=== PATIENT | female | born 1950 | race Caucasian/White ===

== ENCOUNTER → 2017-07-28 08:12 | Outpatient (CLI) | payer OTHER, SELFPAY ==
--- NOTE | 2017-07-28 08:17 | DI.CT.S_ITS ---
PROCEDURE: CT ABDOMEN PELVIS W CON INDICATIONS: 66 year-old female with pelvic pain and hematuria. TECHNIQUE: After the administration of oral and intravenous contrast, 5 mm thick sections acquired from the diaphragms to the symphysis. 5 mm thick coronal and sagittal reformats were performed. For radiation dose reduction, the following was used: automated exposure control, adjustment of mA and/or kV according to patient size. COMPARISON: [facility], CT, ABDOMEN/PELVIS WITH CONTRAST, 09/06/2015, 13:41. FINDINGS: Image quality: Excellent. ABDOMEN: Lung bases: Lung bases are clear. Heart size is normal. Solid organs: Liver is normal in size and enhancement. Gallbladder wall thickness is normal. Biliary system is non-dilated. Pancreas enhances normally. Spleen is normal in size and enhancement. No adrenal nodules. Kidneys are normal in size and enhancement, without hydronephrosis. 1.2 cm inferior left renal cortical simple cyst is again noted. Peritoneum and bowel: Stomach, small bowel, and colon loops are normal in caliber and wall thickness. There is mild sigmoid colon diverticulosis. No free fluid or air. Nodes and vessels: No retroperitoneal or mesenteric adenopathy. Aorta and inferior vena cava are normal in caliber, with mild aortic atherosclerosis. Miscellaneous: No ventral hernias. PELVIS: Genitourinary: Bladder wall thickness is normal. Uterus and ovaries are normal in size. Miscellaneous: No inguinal hernias or adenopathy. Bones: No suspicious bony lesions. No vertebral body compression fractures. There is mild lumbar spine levoscoliosis. There is grade one L4-L5 spondylolisthesis from facet joint degeneration, as well as grade 1 L5-S1 spondylolisthesis from bilateral L5 pars defects. IMPRESSION: 1. No imaging explanation for pelvic pain. If there is persistent clinical concern for small kidney stones, consider noncontrast CT KUB for more sensitive evaluation. 2. Grade one L4-L5 spondylolisthesis from facet joint degeneration as before, as well as grade 1 L5-S1 spondylolisthesis from L5 pars defects. 3. Mild sigmoid colon diverticulosis. 4. An incidental 1.2 cm inferior left renal cortical simple cyst. Dictated by: Danilo Yu M.D. on 07/28/2017 at 10:18 Approved by: Danilo Yu M.D. on 07/28/2017 at 12:14
[2017-07-28 08:50] LABS: BUN Creatinine Ratio 17.8 (6-22); Estimated Glomerular Filt Rate > 60.0 mL/min (>60)
== END ==
PROVIDERS: Visit Provider Family Medicine
DX: R10.2 Pelvic and perineal pain (principal); R31.9 Hematuria, unspecified; K57.90 Diverticulosis of intestine, part unspecified, without perforation or abscess without bleeding; M43.16 Spondylolisthesis, lumbar region; M47.816 Spondylosis without myelopathy or radiculopathy, lumbar region; M43.17 Spondylolisthesis, lumbosacral region; N28.1 Cyst of kidney, acquired
CPT/HCPCS: 36415; 74177; 82565; 84520; Q9967

== ENCOUNTER → 2024-01-18 09:07 | Outpatient (CLI) | payer MEDICARE, OTHER, SELFPAY ==
--- NOTE | 2024-01-18 09:09 | DI.US.S_ITS ---
PROCEDURE: US PARACENTESIS INDICATIONS: ASCITIES TECHNIQUE: The indications, alternatives, benefits, risks, and complications of the procedure were explained to the patient. Written informed consent was obtained and placed in the chart. The abdomen and pelvis were examined sonographically, and an appropriate site was chosen for paracentesis. The skin was prepared and draped in the usual sterile fashion, and 1% lidocaine was infiltrated from the skin down through the peritoneal surface. A 19-gauge catheter-covered needle was then introduced into the peritoneal space, the catheter was advanced and the needle was withdrawn, and thereafter peritoneal fluid was withdrawn. The catheter was then removed and a dressing was applied. The fluid was discarded if the clinician did not order diagnostic testing of the fluid. COMPARISON: None. FINDINGS: Access site: Left lower quadrant Needle: One-Step centesis catheter with introducer needle. Fluid volume and description: 3.4 L cloudy fluid Fluid sent for diagnostic testing: Not requested Medications: 1% lidocaine for local anaesthesia. Complications: None. IMPRESSION: Successful ultrasound-guided paracentesis. Approved by: Christian Cobos M.D. on 01/18/2024 at 12:12
== END ==
PROVIDERS: PCP Family Medicine; Referring Provider Internal Medicine; Visit Provider Internal Medicine
DX: C78.6 Secondary malignant neoplasm of retroperitoneum and peritoneum (principal); C80.1 Malignant (primary) neoplasm, unspecified
CPT/HCPCS: 49083

== ENCOUNTER → 2024-01-27 11:58 | Outpatient (CLI) | payer MEDICARE, OTHER, SELFPAY ==
--- NOTE | 2024-01-27 | PATH_ITS ---
Note [facility] Accession Number: [id number] TESTS RESULT FLAG UNITS REF RANGE LAB Clinician Provided Cytology Information No. of containers..01 Other (Miscellaneous) Source: ASCITES RIGHT LOWER QUADRANT ABDOMEN DIAGNOSIS: ASCITES RIGHT LOWER QUADRANT ABDOMEN NEGATIVE FOR MALIGNANT CELLS. THIS INTERPRETATION INCLUDES EVALUATION OF A CELL BLOCK. Pathologist ICD10: R18.8 Signed out by: Elisa Echevarria MD, Pathologist NPI- [id number] Performed by: Jose Carreno, Ham Passer ([facility]) Gross description: 55 CC, YELLOW, CLOUDY RECEIVED: FRESH IN BLUE CAP CONTAINER.VO /VDU 01/28/2024 1247 Local FLAG LEGEND: L-Low Normal,H-High Normal,LL-Alert Low,HH-Alert High <-Panic Low,>-Panic High,A-Abnormal,AA-Critical Abnormal Performed at: 01 =Z [facility] [address] [place] [address] [address] [facility], [place] [address] Willis Weathers MD, Performed at: 01 [facility] [place] [address], [place], [place] [id number] MD Willis Weathers MD Phone: [phone]
--- NOTE | 2024-01-27 12:00 | DI.US.S_ITS ---
PROCEDURE: US PARACENTESIS INDICATIONS: ASCITES TECHNIQUE: The indications, alternatives, benefits, risks, and complications of the procedure were explained to the patient. Written informed consent was obtained and placed in the chart. The abdomen and pelvis were examined sonographically, and an appropriate site was chosen for paracentesis. The skin was prepared and draped in the usual sterile fashion, and 1% lidocaine was infiltrated from the skin down through the peritoneal surface. A 19-gauge catheter-covered needle was then introduced into the peritoneal space, the catheter was advanced and the needle was withdrawn, and thereafter peritoneal fluid was withdrawn. The catheter was then removed and a dressing was applied. The fluid was discarded if the clinician did not order diagnostic testing of the fluid. COMPARISON: [facility], PARACENTESIS, 01/18/2024, 9:41. FINDINGS: Access site: Right lower abdominal quadrant Needle: One-Step centesis catheter with introducer needle. Fluid volume and description: 3400 mL of clear ascitic fluid. Fluid sent for diagnostic testing: Cytology Medications: 1% lidocaine for local anaesthesia. Complications: None. IMPRESSION: Ultrasound-guided therapeutic and diagnostic paracentesis. Dictated by: Willis Baca M.D. on 01/27/2024 at 16:27 Approved by: Willis Baca M.D. on 01/27/2024 at 16:28
== END ==
PROVIDERS: PCP Family Medicine; Referring Provider Internal Medicine; Visit Provider Internal Medicine
DX: C78.6 Secondary malignant neoplasm of retroperitoneum and peritoneum (principal); R18.8 Other ascites; C80.1 Malignant (primary) neoplasm, unspecified
CPT/HCPCS: 49083

== ENCOUNTER 2024-02-10 08:48 | Outpatient (CLI) | payer MEDICARE, OTHER, SELFPAY ==
--- NOTE | 2024-02-10 08:50 | DI.US.S_ITS ---
PROCEDURE: US PARACENTESIS W/ALBUMIN INDICATIONS: ASCITES TECHNIQUE: The indications, alternatives, benefits, risks, and complications of the procedure were explained to the patient. Written informed consent was obtained and placed in the chart. The abdomen and pelvis were examined sonographically, and an appropriate site was chosen for paracentesis. The skin was prepared and draped in the usual sterile fashion, and 1% lidocaine was infiltrated from the skin down through the peritoneal surface. A 19-gauge catheter-covered needle was then introduced into the peritoneal space, the catheter was advanced and the needle was withdrawn, and thereafter peritoneal fluid was withdrawn. The catheter was then removed and a dressing was applied. The fluid was discarded if the clinician did not order diagnostic testing of the fluid. COMPARISON: None. FINDINGS: Access site: Low midline abdomen. Needle: One-Step centesis catheter with introducer needle. Fluid volume and description: Clear ascitic fluid for a total of 2000 mL Fluid sent for diagnostic testin mL were sent to the lab for lab training purposes. Medications: 1% lidocaine for local anaesthesia. Complications: None. IMPRESSION: Ultrasound-guided therapeutic paracentesis. Dictated by: Willis Baca M.D. on 02/11/2024 at 20:05 Approved by: Willis Baca M.D. on 02/11/2024 at 20:06
[2024-02-10 10:00] VITALS: BP 117/75; PULSE 100; RESP 18; TEMP 36.8; O2SAT 99
[2024-02-10 10:55] VITALS: BP 101/96; PULSE 96; RESP 18; O2SAT 96
[2024-02-10 11:28] VITALS: BP 122/78; PULSE 107; RESP 18; O2SAT 96
[2024-02-10 11:30] VITALS: BP 127/83; PULSE 111; RESP 20; O2SAT 97
[2024-02-10 11:45] VITALS: BP 124/80; PULSE 101; RESP 18; O2SAT 96
[2024-02-10 11:50] VITALS: BP 126/76; PULSE 109; RESP 18; O2SAT 96
== END 2024-02-10 12:05 | disposition home or self-care (01) ==
PROVIDERS: PCP Family Medicine; Referring Provider Internal Medicine; Visit Provider Internal Medicine
DX: C78.6 Secondary malignant neoplasm of retroperitoneum and peritoneum (principal); R18.8 Other ascites; C80.1 Malignant (primary) neoplasm, unspecified
CPT/HCPCS: 49083

== ENCOUNTER 2024-02-24 09:15 | Outpatient (CLI) | payer MEDICARE, OTHER, SELFPAY ==
--- NOTE | 2024-02-24 09:18 | DI.US.S_ITS ---
PROCEDURE: US PARACENTESIS W/ALBUMIN INDICATIONS: ASCITES TECHNIQUE: The indications, alternatives, benefits, risks, and complications of the procedure were explained to the patient. Written informed consent was obtained and placed in the chart. The abdomen and pelvis were examined sonographically, and an appropriate site was chosen for paracentesis. The skin was prepared and draped in the usual sterile fashion, and 1% lidocaine was infiltrated from the skin down through the peritoneal surface. A 19-gauge catheter-covered needle was then introduced into the peritoneal space, the catheter was advanced and the needle was withdrawn, and thereafter peritoneal fluid was withdrawn. The catheter was then removed and a dressing was applied. The fluid was discarded if the clinician did not order diagnostic testing of the fluid. COMPARISON: [facility], PARACENTESIS W/ALBUMIN, 02/10/2024, 10:13. FINDINGS: Access site: Left lower quadrant Needle: One-Step centesis catheter with introducer needle. Fluid volume and description: 2150 cc clear , yellow fluid Fluid sent for diagnostic testing: No Medications: 1% lidocaine for local anaesthesia. Complications: None. IMPRESSION: Successful ultrasound-guided paracentesis. Dictated by: Be Tran M.D. on 02/24/2024 at 15:46 Approved by: Be Tran M.D. on 02/24/2024 at 15:46
[2024-02-24 09:39] VITALS: BP 137/80; PULSE 103; RESP 18; TEMP 36.8; O2SAT 94
[2024-02-24 10:01] LABS: Hematocrit 33.1 % (36-46); Hemoglobin 10.5 g/dL (12.0-16.0); Mean Corpuscular HGB Conc 31.8 % (30-36); Mean Corpuscular Hemoglobin 26.1 PG (26-34); Mean Corpuscular Volume 81.9 fL (80-100); Platelet Count 255 X10^3/uL (150-400); Red Blood Cell Count 4.04 X10^6/uL (4.0-5.2); Red Cell Distribution Width 24.7 % (11.6-14.8); White Blood Cell Count 4.6 X10^3/uL (4.5-11.0)
[2024-02-24 10:11] LABS: INR 0.9 (0.9-1.3); Prothrombin Time 10.5 SECONDS (9.4-12.5)
[2024-02-24 11:38] VITALS: BP 122/77; PULSE 105; RESP 18; O2SAT 96
[2024-02-24 11:45] VITALS: BP 113/72; PULSE 96; RESP 16; O2SAT 96
[2024-02-24 11:50] VITALS: BP 114/73; PULSE 95; RESP 16; O2SAT 98
[2024-02-24 11:55] VITALS: BP 122/78; PULSE 96; RESP 16; O2SAT 96
== END 2024-02-24 12:00 | disposition home or self-care (01) ==
PROVIDERS: Radiology Diagnostic Radiology; PCP Family Medicine; Referring Provider Internal Medicine; Visit Provider Internal Medicine
DX: R18.8 Other ascites (principal); C78.6 Secondary malignant neoplasm of retroperitoneum and peritoneum
CPT/HCPCS: 49083; 85027; 85610

== ENCOUNTER 2024-03-09 09:50 | Outpatient (CLI) | payer MEDICARE, OTHER, SELFPAY ==
--- NOTE | 2024-03-09 09:53 | DI.US.S_ITS ---
PROCEDURE: US PARACENTESIS W/ALBUMIN INDICATIONS: ASCITES. TECHNIQUE: The indications, alternatives, benefits, risks, and complications of the procedure were explained to the patient. Written informed consent was obtained and placed in the chart. The abdomen and pelvis were examined sonographically, and an appropriate site was chosen for paracentesis. The skin was prepared and draped in the usual sterile fashion, and 1% lidocaine was infiltrated from the skin down through the peritoneal surface. A 19-gauge catheter-covered needle was then introduced into the peritoneal space, the catheter was advanced and the needle was withdrawn, and thereafter peritoneal fluid was withdrawn. The catheter was then removed and a dressing was applied. The fluid was discarded if the clinician did not order diagnostic testing of the fluid. COMPARISON: [facility], , PARACENTESIS W/ALBUMIN, 02/24/2024, 11:09. FINDINGS: Access site: Left paramidline Needle: One-Step centesis catheter with introducer needle. Fluid volume and description: Clear yellow ascitic fluid. A total of 2100 mL were removed. Fluid sent for diagnostic testing: Therapeutic only. Medications: 1% lidocaine for local anaesthesia. Complications: None. IMPRESSION: Ultrasound-guided left paramidline therapeutic paracentesis. Dictated by: Willis Baca M.D. on 03/09/2024 at 15:28 Approved by: Willis Baca M.D. on 03/09/2024 at 15:29
[2024-03-09 11:00] VITALS: BP 121/75; PULSE 89; RESP 14; TEMP 37.3; O2SAT 99
[2024-03-09 11:45] VITALS: BP 138/75; PULSE 78; RESP 14; O2SAT 98
[2024-03-09 12:00] VITALS: BP 128/80; PULSE 79; RESP 14; O2SAT 98
== END 2024-03-09 12:12 | disposition home or self-care (01) ==
LOC: US 09:52
PROVIDERS: PCP Family Medicine; Referring Provider Radiology Diagnostic Radiology; Visit Provider Radiology Diagnostic Radiology
DX: C16.9 Malignant neoplasm of stomach, unspecified (principal); C78.6 Secondary malignant neoplasm of retroperitoneum and peritoneum; R18.0 Malignant ascites
CPT/HCPCS: 49083

== ENCOUNTER → 2024-04-06 08:53 | Outpatient (CLI) | payer MEDICARE, OTHER, SELFPAY ==
--- NOTE | 2024-04-06 08:56 | DI.US.S_ITS ---
PROCEDURE: US PARACENTESIS INDICATIONS: PERITONEAL CARCINOMATOSIS TECHNIQUE: The indications, alternatives, benefits, risks, and complications of the procedure were explained to the patient. Written informed consent was obtained and placed in the chart. The abdomen and pelvis were examined sonographically, and an appropriate site was chosen for paracentesis. The skin was prepared and draped in the usual sterile fashion, and 1% lidocaine was infiltrated from the skin down through the peritoneal surface. A 19-gauge catheter-covered needle was then introduced into the peritoneal space, the catheter was advanced and the needle was withdrawn, and thereafter peritoneal fluid was withdrawn. The catheter was then removed and a dressing was applied. The fluid was discarded if the clinician did not order diagnostic testing of the fluid. COMPARISON: [facility], PARACENTESIS W/ALBUMIN, 03/09/2024, 11:10. [facility], PARACENTESIS, 01/27/2024, 12:41. FINDINGS: Access site: Left lower quadrant Needle: One-Step centesis catheter with introducer needle. Fluid volume and description: 1450 cc, clear straw-colored Fluid sent for diagnostic testing: Cytology Medications: 1% lidocaine for local anaesthesia. Complications: None. IMPRESSION: Successful ultrasound-guided therapeutic and diagnostic paracentesis. 1450 cc removed. Dictated by: Brenden Rust M.D. on 04/06/2024 at 11:19 Approved by: Brenden Rust M.D. on 04/06/2024 at 11:22
[2024-04-06 09:41] LABS: INR 0.9 (0.9-1.3); Prothrombin Time 10.7 SECONDS (9.4-12.5)
== END ==
LOC: US 08:55
PROVIDERS: Radiology Diagnostic Radiology; PCP Family Medicine; Referring Provider Internal Medicine; Visit Provider Internal Medicine
DX: C78.6 Secondary malignant neoplasm of retroperitoneum and peritoneum (principal); R10.30 Lower abdominal pain, unspecified
CPT/HCPCS: 49083; 85610

== ENCOUNTER → 2024-04-20 10:40 | Outpatient (CLI) | payer MEDICARE, OTHER, SELFPAY ==
--- NOTE | 2024-04-20 | DI.US.S_ITS ---
PROCEDURE: US ABDOMEN LIMITED INDICATIONS: PERITONEAL CARCINOMATOSIS - ASCITES CHECK TECHNIQUE: Real-time focused scanning was performed of the abdomen, with image documentation. COMPARISON: 04/06/2024. FINDINGS: Limited ultrasound of the abdomen shows only a small amount of fluid in the the mid lower abdomen. The patient is not symptomatic and there is no reason for paracentesis today.. IMPRESSION: Small amount of abdominal fluid recommend paracentesis when there is a significant amount. The patient is currently asymptomatic from fluid. Dictated by: Ferdinand Kennedy M.D. on 04/20/2024 at 12:44 Approved by: Ferdinand Kennedy M.D. on 04/20/2024 at 12:49
== END ==
PROVIDERS: PCP Family Medicine; Referring Provider Internal Medicine; Visit Provider Internal Medicine
DX: C78.6 Secondary malignant neoplasm of retroperitoneum and peritoneum (principal); C80.1 Malignant (primary) neoplasm, unspecified
CPT/HCPCS: 76705

== ENCOUNTER → 2024-05-30 12:40 | Outpatient (CLI) | payer MEDICARE, OTHER, SELFPAY ==
--- NOTE | 2024-05-30 12:43 | DI.US.S_ITS ---
PROCEDURE: US ABDOMEN LIMITED INDICATIONS: PERITONEAL CARCINOMATOSIS TECHNIQUE: Real-time focused scanning was performed of the abdomen, with image documentation. COMPARISON: [facility], , US ABDOMEN LIMITED, 04/20/2024, 11:10. FINDINGS: A limited 4 quadrant ultrasound of the abdomen did not reveal any drainable fluid for an ultrasound-guided paracentesis. IMPRESSION: Insufficient fluid for paracentesis. Dictated by: Be Tran M.D. on 05/30/2024 at 15:38 Approved by: Be Tran M.D. on 05/30/2024 at 15:39
== END ==
PROVIDERS: PCP Family Medicine; Visit Provider Radiology Diagnostic Radiology
DX: C78.6 Secondary malignant neoplasm of retroperitoneum and peritoneum (principal); C80.1 Malignant (primary) neoplasm, unspecified
CPT/HCPCS: 76705

== ENCOUNTER 2024-07-01 14:19 | Emergency (ER) | payer MEDICARE, OTHER, SELFPAY ==
[2024-07-01] VITALS (9 sets, daily range): BP systolic 135–149; BP diastolic 85–99; PULSE 89–103; RESP 16–24; TEMP 36.9; O2SAT 92–99; BMI 15.7
--- NOTE | 2024-07-01 14:56 | EKG_ITS ---
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
[2024-07-01 15:13] LABS: Add Manual Diff / Slide Review NO; Basophils Absolute Auto 100 /uL (0-100); Eosinophils Absolute Auto 0 /uL (0-450); Eosinophils Percent Auto 0.3 % (2-4); Hematocrit 39.3 % (36-46); Hemoglobin 12.9 g/dL (12.0-16.0); Lymphocytes Absolute Auto 2000 /uL (1100-4500); Lymphocytes Percent Auto 18.5 % (25-40); Mean Corpuscular HGB Conc 32.7 % (30-36); Mean Corpuscular Volume 88.6 fL (80-100); Monocytes Absolute Auto 700 /uL (0-900); Monocytes Percent Auto 6.2 % (3-14); Neutrophils Absolute Auto 8100 /uL (1500-7000); Platelet Count 161 X10^3/uL (150-400); Red Blood Cell Count 4.44 X10^6/uL (4.0-5.2); Red Cell Distribution Width 16.6 % (11.6-14.8)
[2024-07-01 15:23] LABS: Alanine Aminotransferase 53 IU/L (<35); Albumin 4.1 g/dL (3.5-5.0); Albumin Globulin Ratio 1.5 (1.0-2.8); Alkaline Phosphatase 103 U/L (38-126); Aspartate Aminotransferase 53 IU/L (14-36); BUN Creatinine Ratio 28.3 (6-22); Bilirubin Total 0.7 mg/dL (0.2-1.3); Blood Urea Nitrogen 15 mg/dL (7-17); Calcium 9.1 mg/dL (8.4-10.2); Carbon Dioxide 24 mmol/L (22-32); Chloride 101 mmol/L (98-107); Estimated Glomerular Filt Rate > 60 mL/min (>60); Globulin 2.8 g/dL (1.7-4.1); Glucose 94 mg/dL (80-110); HEMOLYSIS 27 (0-50); Lipase 65 U/L (23-300); Potassium 3.8 mmol/L (3.4-5.1); Sodium 133 mmol/L (137-145); Total Protein 6.9 g/dL (6.3-8.2)
[2024-07-01 15:44] LABS: INR 0.9 (0.9-1.3); Prothrombin Time 10.3 SECONDS (9.4-12.5)
[2024-07-01 15:47] LABS: PTT Partial Thromboplastin Tim 28 SECONDS (25.1-36.5)
--- NOTE | 2024-07-01 15:58 | ED_ITS ---
HPI - Abdominal Pain General Chief Complaint: Abdominal Pain Stated Complaint: constipation, thinks she has a hernia. Time Seen by Provider: 07/01/24 14:49 History of Present Illness HPI narrative: Patient is a 73-year-old female with known gastric cancer responding to chemotherapy currently on a treatment holiday presenting today with increasing abdominal discomfort and burning sensation. Reports that her last bowel movement was 3 days ago feels like she might be constipated but is having some hard lumps both on the left lower quadrant in the right lower quadrant she thinks they might be a hernia. No nausea or vomiting. She was having pretty extensive pain and burning in her abdomen ongoing nausea not responding to Zofran. She takes Dilaudid at home for pain. Followed by Oncology at [facility]. Reports that last scan was June 09 in the cancer was responding nicely. Related Data Home Medications Medication Instructions Recorded Confirmed ASCORBIC ACID (VITAMIN C) 1,000 mg PO Q DAY ##0 08/21/10 BLACK CURRANT OIL (GLA) 1,000 mg PO Q DAY ##0 08/21/10 Fish Oil 2,000 mg PO Q DAY ##0 08/21/10 [MULTIVITAMIN] ##0 08/21/10 Previous Rx's Medication Instructions Recorded acyclovir 400 mg tablet 400 mg PO Q DAY #30 tabs 11/21/16 metoclopramide HCl 10 mg tablet 10 mg PO Q6H PRN nausea and 07/01/24 (Reglan) vomiting #20 tabs Allergies Allergy/AdvReac Type Severity Reaction Status Date / Time vancomycin [VANCOMYCIN] Allergy Severe NAUSEA, Unverified 07/01/17 12:01 VOMITING amoxicillin [AMOXICILLIN] Allergy Mild RASH Unverified 07/01/17 12:01 cephalexin [CEPHALEXIN] Allergy Unknown Unverified 07/01/17 12:01 erythromycin base Allergy Unknown Unverified 07/01/17 12:01 [ERYTHROMYCIN BASE] itraconazole [ITRACONAZOLE] Allergy Unknown Unverified 07/01/17 12:01 Sulfa (Sulfonamide Allergy Unknown Unverified 07/01/17 12:01 Antibiotics) [SULFA (SULFONAMIDE ANTIBIOTICS)] Exam Initial Vital Signs Initial Vital Signs: Vital Signs Temperature 98.4 F 07/01/24 14:32 Pulse Rate 103 H 07/01/24 14:32 Respiratory Rate 16 07/01/24 14:32 Blood Pressure 136/85 07/01/24 14:32 Pulse Oximetry 97 07/01/24 14:32 Oxygen Delivery Method Room Air 07/01/24 14:32 GENERAL: Alert chronically ill thin 73-year-old female HEENT: Head atraumatic,EOMI, pupils reactive, face symmetric, moist mucous membranes CARDIOVASCULAR: Regular rate and rhythm without murmurs, rubs or gallops. RESPIRATORY: Breath sounds equal bilaterally, no wheezes rales or rhonchi. ABDOMEN: Soft, slightly positive fluid wave there is some hard any left lower quadrant nonreproducible also small area subcutaneously in the right side non erythematous minimal tenderness to talk EXTREMITIES: Normal range of motion, no clubbing or edema. Neurovascularly intact NEUROLOGICAL: Alert and oriented x4.Normal gait and speech. SKIN: Warm, dry, no laceration, no petechiae, no rashes or lesions. Course Orders Ordered: ED Orders 07/01/24 14:47 EKG-12 Lead Stat 07/01/24 15:05 Complete Blood Count AUTO DIFF Stat Comprehensive Metabolic Panel Stat Lipase Stat PT [Prothrombin Time INR] Stat PTT Partial Thromboplastin Brian Stat 07/01/24 15:58 CT abdomen pelvis w con Stat Discontinued Medications Hydromorphone HCl (Hydromorphone 1 Mg Inj) 1 mg IV NOW ONE Stop: 07/01/24 15:59 Last Admin: 07/01/24 16:45 Dose: Not Given Documented By: PATSY Sodium Chloride (Normal Saline 0.9%) 1,000 mls @ 1,000 mls/hr IV BOLUS ONE Stop: 07/01/24 16:57 Last Infusion: 07/01/24 17:41 Dose: Infused Documented By: Admin: 07/01/24 16:23 Dose: 1,000 mls/hr Documented By: PATSY Metoclopramide HCl (Metoclopramide 10 Mg/2 Ml Inj) 10 mg IV NOW ONE Stop: 07/01/24 15:59 Last Admin: 07/01/24 16:23 Dose: 10 mg Documented By: PATSY Ondansetron HCl (Ondansetron 4 Mg/2 Ml Inj) 4 mg IV NOW PRN PRN Reason: Nausea And Vomiting Ondansetron HCl (Ondansetron 4 Mg Odt) 4 mg PO NOW PRN PRN Reason: Nausea And Vomiting Vital Signs Vital signs: Vital Signs - 8 hr 07/01/24 14:32 07/01/24 14:59 07/01/24 15:00 Temperature 98.4 F Pulse Rate 103 H 96 H Respiratory Rate 16 20 Blood Pressure 136/85 142/88 H Pulse Oximetry 97 98 Oxygen Delivery Method Room Air 07/01/24 15:00 07/01/24 15:30 07/01/24 15:30 Temperature Pulse Rate 97 H 95 H Respiratory Rate 20 24 Blood Pressure 142/99 H Pulse Oximetry 98 98 Oxygen Delivery Method 07/01/24 16:00 07/01/24 16:00 07/01/24 16:30 Temperature Pulse Rate 95 H Respiratory Rate 21 Blood Pressure 135/92 H 140/93 H Pulse Oximetry 98 Oxygen Delivery Method 07/01/24 16:30 07/01/24 17:01 07/01/24 17:04 Temperature Pulse Rate 91 H 91 H Respiratory Rate 18 Blood Pressure 144/91 H Pulse Oximetry 97 92 Oxygen Delivery Method 07/01/24 17:04 07/01/24 17:30 07/01/24 17:30 Temperature Pulse Rate 89 89 Respiratory Rate 22 21 Blood Pressure 149/87 H Pulse Oximetry 99 98 Oxygen Delivery Method Room Air MDM - Abdominal Pain Lab Data 07/01/24 15:05 07/01/24 15:05 Labs: Lab Results 07/01/24 Range/Units 15:05 WBC 11.0 (4.5-11.0) X10^3/uL RBC 4.44 (4.0-5.2) X10^6/uL Hgb 12.9 (12.0-16.0) g/dL Hct 39.3 (36-46) % MCV 88.6 (80-100) fL MCH 29.0 (26-34) PG MCHC 32.7 (30-36) % RDW 16.6 H (11.6-14.8) % Plt Count 161 (150-400) X10^3/uL Neut % (Auto) 74.0 (50-75) % Lymph % (Auto) 18.5 L (25-40) % [place] % (Auto) 6.2 (3-14) % Eos % (Auto) 0.3 L (2-4) % Baso % (Auto) 1.0 (0-2) % Neut # (Auto) 8100 H (4323-6994) /uL Lymph # (Auto) 2000 (6867-2254) /uL [place] # (Auto) 700 (0-900) /uL Eos # (Auto) 0 (0-450) /uL Baso # (Auto) 100 (0-100) /uL PT 10.3 (9.4-12.5) SECONDS INR 0.9 (0.9-1.3) APTT 28 (25.1-36.5) SECONDS Sodium 133 L (137-145) mmol/L Potassium 3.8 (3.4-5.1) mmol/L Chloride 101 (98-107) mmol/L Carbon Dioxide 24 (22-32) mmol/L BUN 15 (7-17) mg/dL Creatinine 0.53 (0.52-1.04) mg/dL Estimated GFR > 60 (>60) mL/min BUN/Creatinine Ratio 28.3 H (6-22) Glucose 94 (80-110) mg/dL Calcium 9.1 (8.4-10.2) mg/dL Total Bilirubin 0.7 (0.2-1.3) mg/dL AST 53 H (14-36) IU/L ALT 53 H (<35) IU/L Alkaline Phosphatase 103 (38-126) U/L Total Protein 6.9 (6.3-8.2) g/dL Albumin 4.1 (3.5-5.0) g/dL Globulin 2.8 (1.7-4.1) g/dL Albumin/Globulin Ratio 1.5 (1.0-2.8) Lipase 65 (23-300) U/L Point of care testing: Urine Dip Bedside Urine Glucose Negative Bedside Urine Bilirubin - Negative Bedside Urine Ketone - Negative Urine Specific [place] 1.010 Bedside Urine Occult Blood - Negative Bedside Urine pH 7.0 Bedside Urine Protein - Negative Bedside Urine Urobilinogen - Negative Bedside Urine Nitrite - Negative Bedside Urine Leukocytes - Negative Esterase Imaging Data CT scan - abdomen/pelvis: Radiologist's Impression: PROCEDURE: CT ABDOMEN PELVIS W CON INDICATIONS: right and left swelling known gastric cancer TECHNIQUE: After the administration of intravenous contrast, axial sections acquired from the lung bases to the pubic symphysis. Coronal and sagittal reformats were performed. For radiation dose reduction, the following was used: automated exposure control, adjustment of mA and/or kV according to patient size. COMPARISON: Outside Facility, CT, CT CHEST ABD PEL W CON, 04/08/2024, 14:17. [facility], CT, CT ABDOMEN PELVIS W CON, 07/28/2017, 9:58. FINDINGS: Image quality: Diagnostic. Lower Chest: No significant findings. ABDOMEN: Liver: No solid mass. Gallbladder: No radiopaque gallstones or wall thickening. Biliary ducts: No biliary dilation. Pancreas: No ductal dilation. Spleen: Size is within normal limits. Adrenal Glands: No adrenal nodules. Kidneys and Ureters: No hydronephrosis. No solid mass. No complex renal cystic lesion which requires follow up. Stomach and Bowel: Normal colonic caliber, without significant wall thickening. Large diffuse fecal load. No abnormally dilated bowel loops. The stomach is moderately distended and filled with ingested contents. Peritoneum: Significant interval increase in diffuse abdominal and pelvic ascites, moderately large. Increased peritoneal carcinomatosis, notable peritoneal masses are present in the pelvis, with significant interval increase in size. At the level of the acetabuli, almost in a horizontal linear arrangement, are 2 peritoneal masses on either side of the uterus which have definitely increased in size. The most rightward mass previously measured approximately 2.3 x 2.7 cm on previous image 152 of series 2. On current image image 103 of series 2 it measures 3.6 x 3.9 cm. The mass to the left of the uterus was barely perceptible or non perceptible previously. On current image 103 of series 2 measures 3.0 x 3.6 cm. Ventral Wall: No significant ventral hernia. Abdominal Nodes: No retroperitoneal or mesenteric adenopathy by size criteria. Vessels: Aorta and inferior vena cava are normal in size. PELVIS: Pelvic Organs: Unremarkable. Bladder: No bladder wall thickening, accounting for underdistention. Pelvic Nodes: No enlarged lymph nodes. Miscellaneous: No inguinal hernias are seen. Bones: No aggressive osseous abnormality. IMPRESSION: 1. There is significant interval progression of peritoneal carcinomatosis, most notably in the pelvis, as well as significant interval increase in abdominal and pelvic ascites. 2. Large diffuse fecal load. 3. No bowel obstruction noted. Dictated by: Robert Patel M.D. on 07/01/2024 at 16:35 Approved by: Robert Patel M.D. on 07/01/2024 at 16:46 ECG Data Attestation: I personally reviewed and interpreted this ECG as follows: Prior ECG tracings: not available for review Interpretation: Sinus rhythm rate 95 OR interval 152 QRS [address] changes T-wave inversions no priors to compare MDM Narrative Medical decision making narrative: Patient 73-year-old female with known gastric cancer currently on treatment holiday presenting to day with abdominal discomfort and burning. On exam she does hardening parts in the left and right lower quadrant minimally tender to touch nonreducible. Work has been reviewed No leukocytosis no anemia Electrolytes within normal limits no MELANY AST 53 ALT 53 alk-phos 1 0 (chemo is held due to elevation of these number) CT scan shows progression of peritoneal carcinomatosis. However scan is compared to 04/08/2024. Patient and spouse report that she had scan June 09 which showed improvement, I don't have access to this report. I do suspect that there is progression of disease. She has received a L of fluids Reglan and Dilaudid overall feeling much better. She was scheduled for paracentesis in a week or 2. At this time does not need an emergent paracentesis although CT scan does show moderate ascites. Abdomen is soft. I suspect that the hardening areas that are palpable are related to the cancer. At this time imaging is push to [facility] also given a disc they feel comfortable going home we will give her a prescription for Reglan. Reports that MiraLax helps with constipation does not need any further medication Discharge Plan Departure Patient Disposition: Home Clinical Impression: Peritoneal carcinomatosis Activity Restrictions/Additional Instructions: *You have been diagnosed with peritoneal carcinomatosis *What to do: At this time please talk with your oncologist in regards to your CT. There is concern of possible progression. *Continue to take medications as directed Reglan 10 mg every 6 hours if needed for nausea or vomiting *Follow up with your primary care provider in 2-3 days or call [phone] *Return to ER if you should have increasing abdominal pain persistent vomiting or any new, worsening or concerning symptoms Prescriptions: New metoclopramide HCl [Reglan] 10 mg tablet 10 mg PO Q6H PRN (Reason: nausea and vomiting) Qty: 20 0RF No Action ASCORBIC ACID (VITAMIN C) 1,000 mg PO Q DAY Qty: 0 BLACK CURRANT OIL (GLA) 1,000 mg PO Q DAY Qty: 0 [MULTIVITAMIN] Qty: 0 Fish Oil 2,000 mg PO Q DAY Qty: 0 acyclovir 400 MG tablet 400 mg PO Q DAY Qty: 30 2RF Referrals: Manda Bell MD [Primary Care Provider] - Stand Alone Forms: Patient Portal/API/Survey
[2024-07-01] MEDS: METOCLOPRAMIDE 10 MG/2 ML INJ IV (16:23)
[2024-07-01] MEDS: SODIUM CHLORIDE 0.9% 1,000 ML 1000 ML IV (16:23)
== END 2024-07-01 17:44 | disposition home or self-care (01) ==
PROVIDERS: Emergency Provider Emergency Medicine; PCP Family Medicine
DX: C78.6 Secondary malignant neoplasm of retroperitoneum and peritoneum (principal); C16.9 Malignant neoplasm of stomach, unspecified
CPT/HCPCS: 36415; 74177; 80053; 81003; 83690; 85025; 85610; 85730; 93005; 96361; 96374; 99284; J2765; Q9967

== ENCOUNTER → 2024-08-17 12:31 | Outpatient (CLI) | payer MEDICARE, OTHER, SELFPAY ==
--- NOTE | 2024-08-17 12:34 | DI.US.S_ITS ---
PROCEDURE: US ABDOMEN LIMITED INDICATIONS: PERITONEAL CARCINOMATOSIS TECHNIQUE: Real-time focused scanning was performed of the abdomen, with image documentation. COMPARISON: [facility], , US ABDOMEN LIMITED, 05/30/2024, 13:03. FINDINGS: Ultrasound examination of abdomen shows small amount of ascites fluid. IMPRESSION: Small amount of ascites fluid inadequate for safe ultrasound-guided paracentesis. Dictated by: Edgar Garduno M.D. on 08/20/2024 at 16:42 Approved by: Edgar Garduno M.D. on 08/20/2024 at 16:42
== END ==
PROVIDERS: PCP Family Medicine; Referring Provider Internal Medicine; Visit Provider Internal Medicine
DX: C78.6 Secondary malignant neoplasm of retroperitoneum and peritoneum (principal); Z53.9 Procedure and treatment not carried out, unspecified reason
CPT/HCPCS: 76705